=== PATIENT | male | born 1940 | race Caucasian/White ===

== ENCOUNTER 2018-11-06 10:23 | Emergency (ER) | payer MEDICARE, OTHER ==
[2018-11-06 11:02] VITALS: BP 126/85; PULSE 69
--- NOTE | 2018-11-06 11:14 | EDM.PDOC ---
ED HPI GENERAL MEDICAL PROBLEM - General Chief Complaint: ENT Problem Stated Complaint: SEVERE SORE THROAT Time Seen by Provider: 11/06/18 11:13 Source of Information: Reports: Patient History Limitations: Reports: No Limitations - History of Present Illness INITIAL COMMENTS - FREE TEXT/NARRATIVE: pt has had a sore throat for the paST 3 DAYS. hE HAS NOT HAD A FEVER. Onset: Gradual, Other (LAST 3 DAYS) Duration: Hour(s): Location: Reports: Neck Associated Symptoms: Reports: No Other Symptoms Throat Pain Score (Numeric/FACES): 8 - Related Data Allergies Allergy/AdvReac Type Severity Reaction Status Date / Time No Known Allergies Allergy Verified 11/06/18 11:04 Home Meds: Home Meds NK [No Known Home Meds] 12/11/12 [History] Social & Family History - Tobacco Use Smoking Status *Q: Never Smoker - Caffeine Use Caffeine Use: Reports: Coffee, Tea - Alcohol Use Days Per Week of Alcohol Use: 4 Number of Drinks Per Day: 1 Total Drinks Per Week: 4 - Recreational Drug Use Recreational Drug Use: No ED ROS ENT - Review of Systems Review Of Systems: See Below Constitutional: Reports: Fatigue, Decreased Appetite HEENT: Reports: Throat Pain, Throat Swelling Respiratory: Reports: No Symptoms Cardiovascular: Reports: No Symptoms Endocrine: Reports: No Symptoms GI/Abdominal: Reports: No Symptoms : Reports: No Symptoms Musculoskeletal: Reports: No Symptoms Skin: Reports: No Symptoms Neurological: Reports: No Symptoms Psychiatric: Reports: No Symptoms ED EXAM, ENT - Physical Exam Exam: See Below Text/Narrative:: PT HAS HAD A SORE THROAT AND HOARSENESS FOR THE PAST 2-3 DAYS. iT IS WORSE TODAY. hE HAS NOT HAD A FEVER. Exam Limited By: No Limitations General Appearance: Alert, Anxious, Mild Distress, Other (PUPILS RQUAL AND REACTIVE. ) Ears: Normal TMs Nose: Normal Inspection Mouth/Throat: Throat Pain, Throat Swelling, Tonsillar Erythema Head: Atraumatic Neck: Other (NO SIG NODE SWELLING. ) Respiratory/Chest: No Respiratory Distress Cardiovascular: Regular Rate, Rhythm GI/Abdominal: Soft, Non-Tender Course - Vital Signs Last Recorded V/S: Last Vital Signs Temp 35 C L 11/06/18 11:04 Pulse 69 11/06/18 11:04 Resp 16 11/06/18 11:04 BP 126/85 11/06/18 11:04 Pulse Ox 96 11/06/18 11:04 - Orders/Labs/Meds Orders: Active Orders 24 hr Category Date Time Status CULTURE STREP A CONFIRMATION [RM] Stat Lab 11/06/18 11:12 Results STREP SCRN A RAPID W CULT CONF [RM] Stat Lab 11/06/18 11:12 Results Labs: Laboratory Tests 11/06/18 Range/Units 11:37 WBC 7.9 (4.5-11.0) K/uL RBC 5.08 (4.30-5.90) M/uL Hgb 16.0 H (12.0-15.0) g/dL Hct 46.9 (40.0-54.0) % MCV 92 (80-98) fL MCH 32 H (27-31) pg MCHC 34 (32-36) % Plt Count 276 (150-400) K/uL Neut % (Auto) 71 H (36-66) % Lymph % (Auto) 15 L (24-44) % [place] % (Auto) 11 H (2-6) % Eos % (Auto) 3 (2-4) % Baso % (Auto) 0 (0-1) % - Re-Assessments/Exams Free Text/Narrative Re-Assessment/Exam: 11/06/18 11:53 STREPT IS NEG. hIS WBC IS NOT ELEVATED. hE DOES HAVE A SHIFT. hE HAS REDNESS IN HIS THROAT WILL COVER WITH ANTIBIOTICS. Departure - Departure Time of Disposition: 11:54 Disposition: Home, Self-Care 01 Condition: Fair Clinical Impression: Acute bacterial pharyngitis - Discharge Information Referrals: PCP,None [Primary Care Provider] - Forms: ED Department Discharge Care Plan Goals: PUSH FLUIDS, GARGLE WITH WARM WATER, TYLENOL AND MOTRIN FOR DISCOMFORT, AMOXICILLIN 500MG TID FOR 10 DAYS. iF NOT BETTER HE SHOULD SEE REGULAR dR FOR FURTHER EVALUATION - My Orders Last 24 Hours: My Active Orders 11/06/18 11:12 CULTURE STREP A CONFIRMATION [RM] Stat STREP SCRN A RAPID W CULT CONF [RM] Stat - Assessment/Plan Last 24 Hours: My Active Orders 11/06/18 11:12 CULTURE STREP A CONFIRMATION [RM] Stat STREP SCRN A RAPID W CULT CONF [RM] Stat
== END 2018-11-06 12:04 | disposition home or self-care (01) ==
LOC: JP.ED 10:23
DX: J02.8 Acute pharyngitis due to other specified organisms (principal)
CPT/HCPCS: 36415; 85025; 87081; 87880-QW; 99282; 99283

== ENCOUNTER 2022-01-18 19:11 | Emergency (ER) | payer MEDICARE, OTHER ==
[2022-01-18] MEDS ORDERED: Lidocaine 5% 700 MG Patch TRDERM ONE (20:54)
[2022-01-18 21:30] VITALS: BP 144/96; PULSE 69
== END 2022-01-18 22:23 | disposition home or self-care (01) ==
LOC: JP.ED 19:11
DX: S22.32XA Fracture of one rib, left side, initial encounter for closed fracture (principal); W19.XXXA Unspecified fall, initial encounter
CPT/HCPCS: 71101; 99283; A9270